=== PATIENT | female | born 1985 | race Hispanic/Latino ===

== ENCOUNTER 2019-08-13 18:24 | Emergency (ER) | payer SELFPAY ==
[2019-08-13] MEDS ORDERED: LORazepam 2 MG/ML VIAL IV STA ×2 (19:10→19:49)
[2019-08-13] MEDS ORDERED: SODIUM CHLORIDE 0.9% 1000 ML 2,000 ML IV ONE (19:10)
[2019-08-13 19:11] VITALS: BP 100/41
[2019-08-13] MEDS ORDERED: LORazepam 2 MG/ML VIAL IM PRN (19:12)
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
[2019-08-13] MEDS ORDERED: HALOPERIDOL LACTATE 5 MG/1 ML INJ IM ONE (20:31)
[2019-08-13] MEDS ORDERED: diazePAM 10 MG/2 ML SYRINGE IV ONE (21:05)
[2019-08-13] MEDS ORDERED: MIDAZOLAM 5 MG/5 ML INJ MDV IV ONE (21:06)
[2019-08-13 21:15] LABS: Hemoglobin 11.3 gm/dl (10.1-14.3)
[2019-08-13 21:31] LABS: Alanine Aminotransferase 6 units/L (7-56); Albumin 3.7 g/dL (3.9-5); BUN/Creatinine Ratio 28; Blood Urea Nitrogen 17 mg/dL (7-17); Hemolysis Index 2
[2019-08-13] MEDS ORDERED: ZIPRASIDONE MESYLATE 20 MG VIAL IM ONE (21:32)
[2019-08-13] MEDS ORDERED: MAGNESIUM SULFATE 2 GM/50 ML BAG IV ONE (21:32)
== END 2019-08-13 23:00 | disposition left against medical advice (07) ==
LOC: ED 18:24
DX: F15.10 Other stimulant abuse, uncomplicated (principal); F17.200 Nicotine dependence, unspecified, uncomplicated; Z88.2 Allergy status to sulfonamides; Z79.899 Other long term (current) drug therapy
CPT/HCPCS: 36415; 80053; 82550; 83735; 84702; 85014; 85018; 85049; 93005; 93010; 96365; 96372; 96375; 99284; J1630; J2060; J3360; J3475; J3486; J7030; 80320; G0480; J2250

== ENCOUNTER 2020-01-01 14:00 | Emergency (ER) | payer SELFPAY | END 2020-01-01 14:30 | disposition left against medical advice (07) | LOC: ED 14:00 | DX: Z53.21 Procedure and treatment not carried out due to patient leaving prior to being seen by health care provider (principal) ==